=== PATIENT | female | born 1985 | race Caucasian/White ===

== ENCOUNTER → 2016-04-26 | Outpatient (REF) | payer BC, MEDICAID ==
[~2016-04-26] MED LIST: ACET50TA PO; COLA50CA3 PO; IBUP600T26 PO
== END ==
LOC: M LAB REF 17:01
PROVIDERS: ATTEND Specialist
DX: Z34.83 Encounter for supervision of other normal pregnancy, third trimester (principal)

== ENCOUNTER 2016-05-31 19:32 | Inpatient (IN) | payer BC, MEDICAID ==
[~2016-05-31] VITALS: Ht 167.6 cm; Wt 107.0 kg
[2016-05-31 19:55] VITALS: BP 133/75
[2016-05-31 20:42] LABS: MEAN CORPUSCULAR HEMOGLOBIN 30.1 pg (27.0-33.0); MEAN CORPUSCULAR HGB CONC 34.7 g/dl (32.0-36.5); MEAN CORPUSCULAR VOLUME 86.9 fl (80.0-96.0); RED CELL DISTRIBUTION WIDTH 14.4 % (11.5-14.5); WHITE BLOOD COUNT 5.8 K/mm3 (4.0-10.0)
[2016-05-31 20:45] VITALS: BP 116/77
[2016-05-31] MEDS: miSOPROStol 50 MCG 1/2 TAB (S0191) PO SCH (20:45)
[2016-05-31 21:43] VITALS: BP 142/87
[2016-05-31 22:51] VITALS: BP 135/86
[2016-05-31] MEDS ORDERED: PRENTAB9 PO (23:07)
[2016-05-31 23:18] VITALS: BP 135/78
[2016-06-01] VITALS (17 sets, daily range): BP systolic 122–219; BP diastolic 58–88
[2016-06-01] MEDS: miSOPROStol 50 MCG 1/2 TAB (S0191) PO SCH ×2 (00:45→04:47)
[2016-06-01] MEDS: PRENATAL VITAMIN TAB PO SCH (09:00)
[2016-06-01] MEDS ORDERED: LR 1,000 ML IV SCH (09:10)
[2016-06-01] MEDS ORDERED: OXYTOCIN 30 UNITS IN 0.9% NaCl 500ML IV BAG (J2590) As Ordered ONE ×2 (09:12→21:58)
[2016-06-01] MEDS ORDERED: OXYTOCIN DRIP 30 UNITS in APPROPRIATE DILUENT 1 EA IV SCH ×2 (09:15→10:46)
[2016-06-01] MEDS ORDERED: MOM 30ML SUSPENSION UDC PO PRN (11:00)
[2016-06-01] MEDS ORDERED: DIBUCAINE 1% OINTMENT 30GM TOP PRN (11:00)
[2016-06-01] MEDS ORDERED: RHOGAM 300 MCG (1500 IU) INJ (J2790) IM SCH (11:00)
[2016-06-01] MEDS ORDERED: METHYLERGONOVINE MALEATE 0.2 MG TAB PO PRN (11:00)
[2016-06-01] MEDS ORDERED: IBUPROFEN 800 MG TAB PO PRN (11:00)
[2016-06-01] MEDS ORDERED: LIDOCAINE 1% MDV INJ 50 ML VIAL INFIL ONE (11:00)
[2016-06-01] MEDS ORDERED: MEASLES,MUMPS,RUBELLA VACCINE INJ (MMR-II) (90707) SC SCH (11:00)
[2016-06-01] MEDS ORDERED: ANUSOL HC CREAM 30GM TOP PRN (11:00)
--- NOTE | 2016-06-01 13:33 | DN ---
DATE: 06/01/2016 TIME OF : 10:04 a.m. GENDER: Female. SCORES: 8 and 9. WEIGHT: 3220 grams or 9 pounds 8 ounces. LACERATIONS: First degree midline laceration. ANESTHESIA: None. ESTIMATED BLOOD LOSS: 400 mL. COUNTS: Five laparotomy sponges accounted for prior to and after delivery, two sharps removed from the delivery field. DELIVERY NOTE: On 06/01/2016 at 10:04 a.m., Mrs. Moseley, a 31-year-old 2, now para 2 had a spontaneous vaginal delivery of a live born female infant, scores 8 and 9. Weight was 3220 grams or 9 pounds 8 ounces. Head was delivered left occiput anterior (THEA). There was a nuchal cord, which was manually reduced, followed by delivery of right anterior shoulder, left posterior shoulder and corpus. Infant was handed to mom with a good cry. Cord was clamped times two, was cut by the father of the baby under my direction. Cord blood was obtained. The placenta was drained and delivered grossly intact. A premixed bag of 500 mL of normal saline with 30 units of pitocin was bolused along with uterine massage until the uterus was firm. On inspection, there was a first degree midline laceration, which was first infused with 1% lidocaine, then repaired with 3-0 Vicryl Rapide. Re-inspection of cervix, vagina, and perineum was grossly intact and hemostatic. Mom and baby recovered in stable condition. The couple has been undecided about their daughter's name.
[2016-06-01] MEDS: ACETAMINOPHEN 500 MG TAB PO PRN (15:26)
--- NOTE | 2016-06-01 18:22 | HPE ---
DATE OF ADMISSION: 05/31/2016 HISTORY: 31-year-old G2, P1 female at 40-6/7 weeks gestation by eight week ultrasound, estimated date of confinement (EDC) 05/25/2016, presents for labor induction. She denies contractions or vaginal bleeding. OBSTETRICAL HISTORY: May 2013, 39 week vaginal delivery 8 pound 9 ounce female , no complications. MEDICAL HISTORY: 1. Anxiety and depression. No current medications. 2. Surgeries: Fibroadenoma removed from the breast. ALLERGIES: SULFA. SOCIAL HISTORY: Patient is . She denies cigarettes, alcohol, or drug use. FAMILY HISTORY: Noncontributory. PHYSICAL EXAMINATION: Blood pressure 130/78, pulse 80, weight 247. She is in no apparent distress. HEAD AND NECK: Normal. LUNGS: Clear. HEART: Regular rate and rhythm. ABDOMEN: Nontender, gravid. heart tones category one. Contractions irregular. EXTREMITIES: Nontender. LABS: Blood type is B positive. Rubella immune. RPR nonreactive. Hepatitis B and C negative. Diabetes screen 110. GBS negative on 04/26/2016. ASSESSMENT: 31-year-old G2, P1, at 40-6/7 weeks gestation presents for labor induction. Patient is admitted on 05/31/2016. Risks of induction were discussed.
[2016-06-02] MEDS: DOCUSATE SODIUM 100 MG CAP PO PRN (05:02)
[2016-06-02 06:11] VITALS: BP 150/90
[2016-06-02] MEDS: PRENATAL VITAMIN TAB PO SCH (08:40)
[2016-06-02] MEDS: ACETAMINOPHEN 500 MG TAB PO PRN (16:43)
[2016-06-02 18:13] VITALS: BP 133/77
[2016-06-02 22:00] VITALS: BP 141/84
[2016-06-03] MEDS: ACETAMINOPHEN 500 MG TAB PO PRN (05:24)
[2016-06-03] MEDS: DOCUSATE SODIUM 100 MG CAP PO PRN (05:24)
[2016-06-03 06:15] VITALS: BP 148/88
[2016-06-03] MEDS: PRENATAL VITAMIN TAB PO SCH (08:10)
[2016-06-03] MEDS ORDERED: IBUP-1114 PO (11:20)
[2016-06-03] MEDS ORDERED: ACET50TA PO (11:20)
== END 2016-06-03 12:15 | disposition home or self-care (01) | DRG 560 ==
LOC: M LDI 19:32 → M OBS 06-01 11:52
PROVIDERS: ADMIT Specialist; ATTEND Specialist
PROC: 3E033VJ Introduction of Other Hormone into Peripheral Vein, Percutaneous Approach (ICD-10-PCS; 2016-05-31)
PROC: 10E0XZZ Delivery of Products of Conception, External Approach (ICD-10-PCS; principal; 2016-06-01)
PROC: 0HQ9XZZ Repair Perineum Skin, External Approach (ICD-10-PCS; 2016-06-01)
DX: O48.0 Post-term pregnancy (principal); O69.82X0 Labor and delivery complicated by other cord entanglement, without compression, not applicable or unspecified; Z37.0 Single live birth; Z3A.40 40 weeks gestation of pregnancy; Z88.2 Allergy status to sulfonamides; O70.0 First degree perineal laceration during delivery

== ENCOUNTER → 2017-11-02 | Outpatient (REF) | payer BC ==
[2017-11-07 14:25] LABS: HPV HYBRID CAPTURE II Negative (Negative)
== END ==
LOC: M LAB REF 15:53
DX: Z01.419 Encounter for gynecological examination (general) (routine) without abnormal findings (principal)

== ENCOUNTER → 2022-04-20 | Outpatient (REF) | payer BC ==
[~2022-04-20] MED LIST changes: -ACET50TA PO; +IBUP-1114 PO; +MAPA500T17 PO; +MAPA500T2 PO; +PRENTAB9 PO
== END ==
LOC: M LAB REF 17:06
PROVIDERS: ATTEND Family Medicine
DX: Z12.4 Encounter for screening for malignant neoplasm of cervix (principal)
CPT/HCPCS: 87624; G0123

== ENCOUNTER → 2024-04-28 | Outpatient (REF) | payer BC ==
[2024-04-28 18:55] LABS: ALKALINE PHOSPHATASE 89 U/L (35-104); ALT/SGPT < 9 U/L (7.0-40); AST/SGOT 12 U/L (<34); BILIRUBIN,TOTAL 0.8 MG/DL (0.3-1.2); BLOOD UREA NITROGEN 15 MG/DL (9-23); CARBON DIOXIDE LEVEL 28 MMOL/L (20-31); CHLORIDE LEVEL 103 MMOL/L (98-107); CHOLESTEROL LEVEL 139 MG/DL (<200); CHOLESTEROL RISK RATIO 3.41 (<5); CREATININE FOR GFR 0.79 MG/DL (0.55-1.30); GLOMERULAR FILTRATION RATE > 60.0 (>60); GLUCOSE, FASTING 100 MG/DL (60-100); HDL CHOLESTEROL 40.7 MG/DL (>40); LDL CHOLESTEROL 70.9 MG/DL (<100); NON-HDL-C 98.3 MG/DL; POTASSIUM SERUM 4.4 MMOL/L (3.5-5.1); SODIUM LEVEL 139 MMOL/L (136-145); TOTAL PROTEIN 7.7 G/DL (5.7-8.2); TRIGLYCERIDES LEVEL 137 MG/DL (<150)
[2024-04-28 19:00] LABS: BASO % 0.6 % (0.0-1.0); EOS # 0.1 10^3/uL (0.0-0.5); HEMATOCRIT 43.8 % (36.0-47.0); HEMOGLOBIN 14.4 g/dl (12.0-15.5); LYMPH # 1.5 10^3/uL (1.5-5.0); MEAN CORPUSCULAR HEMOGLOBIN 28.5 pg (27.0-33.0); MEAN CORPUSCULAR HGB CONC 32.9 g/dl (32.0-36.5); MEAN CORPUSCULAR VOLUME 86.6 fl (80.0-96.0); MONO # 0.4 10^3/uL (0.0-0.8); MONO % 7.5 % (2.0-8.0); NEUTROPHILS # 3.1 10^3/uL (1.5-8.5); NEUTROPHILS % 60.3 % (36.0-66.0); PLATELET COUNT, AUTOMATED 238 10^3/uL (150-450); RED BLOOD COUNT 5.06 10^6/uL (4.00-5.40); WHITE BLOOD COUNT 5.1 10^3/uL (4.0-10.0)
[2024-04-28 19:03] LABS: FREE T4 1.24 NG/DL (0.89-1.76); THYROID STIMULATING HORMONE 1.537 uIU/ML (0.55-4.78)
== END ==
LOC: M LABDRWAD 17:13
PROVIDERS: ATTEND Registered Nurse
DX: Z00.00 Encounter for general adult medical examination without abnormal findings (principal)